=== PATIENT | male | born 1965 | race African-American/Black ===

== ENCOUNTER 2020-07-19 14:02 | Emergency (ER) | payer OTHER ==
[~2020-07-19] VITALS: Ht 165.1 cm; Wt 71.0 kg
[2020-07-19 15:07] VITALS: BP 130/88
== END 2020-07-19 15:08 | disposition home or self-care (01) ==
LOC: ER 14:02
DX: J45.901 Unspecified asthma with (acute) exacerbation (principal); Z76.0 Encounter for issue of repeat prescription
CPT/HCPCS: 99281